=== PATIENT | female | born 1985 | race Caucasian/White ===

== ENCOUNTER 2021-01-06 21:18 | Emergency (ER) | payer OTHER ==
[~2021-01-06] VITALS: Ht 157.5 cm; Wt 81.6 kg
[2021-01-06 21:21] VITALS: BP 140/86
--- NOTE | 2021-01-06 21:21 | NUR ---
TO BED AMBULATORY
--- NOTE | 2021-01-06 21:30 | NUR ---
PT. IS A 35 Y/O FEMALE THAT CAME TO ED WITH C/O LEFT HAND PAIN. PT. STATES THAT SHE FELT HER HAND "HEAVY AND SWOLLEN" AROUND 9:30PM. SHE STATED THAT SHE ATE [facility] WITH [employer] BEFORE IT HAPPENED. SHE RATES HER PAIN AT A 8/10 ON THE PAIN SCALE. UPON ASSESSMENT, PT. HAS FULL RANGE OF MOTION ON BOTH HANDS AND NO SWELLING NOTED. DENIES N/V/D; SKIN IS PINK/WARM/DRY; AAOX4 WITH EVEN AND STEADY GAIT; HR EVEN AND REGULAR; PT DENIES ANY FEVER, CP, SOB, OR COUGH AT THIS TIME; VSS; PATIENT POSITIONED FOR COMFORT AND IS SITTING ON BED; HOB ELEVATED; BEDRAILS UP X1; BED DOWN. ER MD MADE AWARE OF PT STATUS.
[2021-01-06] MEDS ORDERED: FAMOTIDINE 20 MG TAB PO ONE (21:45)
[2021-01-06] MEDS ORDERED: DIPH25TA53 PO (22:24)
[2021-01-06 22:50] VITALS: BP 136/85
--- NOTE | 2021-01-06 22:50 | NUR ---
Patient discharged with v/s stable. Written and verbal after care instructions given and explained. Patient alert, oriented and verbalized understanding of instructions. Ambulatory with steady gait. All questions addressed prior to discharge. ID band removed. Patient advised to follow up with PMD. Rx of BENADRYL given. Patient educated on indication of medication including possible reaction and side effects. Opportunity to ask questions provided and answered.
== END 2021-01-06 22:50 | disposition home or self-care (01) ==
LOC: MED 21:18
DX: M79.89 Other specified soft tissue disorders (principal)
CPT/HCPCS: 99283; Q0163

== ENCOUNTER 2021-08-11 18:36 | Emergency (ER) | payer OTHER ==
[~2021-08-11] VITALS: Ht 157.5 cm; Wt 80.7 kg
[~2021-08-11 18:36] MED LIST: DIPH25TA53 PO
[2021-08-11 18:41] VITALS: BP 150/75
--- NOTE | 2021-08-11 18:45 | NUR ---
PT SENT TO LOBBY
[2021-08-11 21:00] VITALS: BP 150/75
--- NOTE | 2021-08-11 21:00 | NUR ---
Patient discharged with v/s stable. Written and verbal after care instructions given and explained. Patient verbalized understanding. Ambulatory with steady gait. All questions addressed prior to discharge. Advised to follow up with PMD.
== END 2021-08-11 21:00 | disposition home or self-care (01) ==
LOC: MED 18:36
DX: F41.0 Panic disorder [episodic paroxysmal anxiety] (principal)
CPT/HCPCS: 81002; 81025; 93005; 99283